=== PATIENT | female | born 1985 | race Caucasian/White ===

== ENCOUNTER 2021-08-14 10:46 | Emergency (ER) | payer BC, OTHER ==
[2021-08-14] MEDS ORDERED: ONDANSETRON ODT 4 MG TABLET TL STA (11:03)
[2021-08-14 11:24] LABS: BASOPHILS % (AUTO) 0.6 %; EOSINOPHILS # (AUTO) 0.1 10^3/uL (0.0-0.7); EOSINOPHILS % (AUTO) 1.4 %; HCT - HEMATOCRIT 41.6 % (37.0-47.0); LYMPHOCYTES # (AUTO) 1.8 10^3/uL (1.5-3.5); LYMPHOCYTES % (AUTO) 27.5 %; MEAN CORPUSCULAR HEMOGLOBIN 30.8 pg (27.0-31.0); MEAN CORPUSCULAR HGB CONC 33.7 g/dL (32.0-36.0); MEAN CORPUSCULAR VOLUME 91.4 fL (81.0-99.0); MEAN PLATELET VOLUME 11.8 fL (7.9-10.8); MONOCYTES # (AUTO) 0.5 10^3/uL (0.0-1.0); MONOCYTES % (AUTO) 6.8 %; NEUTROPHILS # (AUTO) 4.2 10^3/uL (1.5-6.6); NEUTROPHILS % (AUTO) 63.4 %; PLT - PLATELET COUNT 277 10^3/uL (130-450); RED BLOOD COUNT 4.55 10^6/uL (4.20-5.40); RED CELL DISTRIBUTION WIDTH 11.7 % (12.0-15.0); WHITE BLOOD COUNT 6.6 x10^3/uL (4.8-10.8)
[2021-08-14 11:43] LABS: ALBUMIN 4.9 g/dL (3.2-5.5); ALBUMIN/GLOBULIN RATIO 1.8 (1.0-2.2); BILIRUBIN,TOTAL 0.5 mg/dL (0.2-1.0); CALCIUM 9.8 mg/dL (8.5-10.3); CREATININE 0.7 mg/dL (0.4-1.0); POTASSIUM 3.4 mmol/L (3.5-5.0); TOTAL PROTEIN 7.6 g/dL (6.7-8.2)
[2021-08-14] MEDS ORDERED: KETOROLAC 30 MG/ML VIAL IVP STA (12:03)
[2021-08-14] MEDS ORDERED: ONDANSETRON 4 MG/2 ML VIAL IVP STA (12:03)
[2021-08-14] MEDS ORDERED: LIDOCAINE-MPF 2% 4.5 ML in SODIUM CHLORIDE 0.9% 50 ML IV STA (12:09)
--- NOTE | 2021-08-14 12:25 | ED Physician Documentation ---
PD HPI ABD PAIN - Stated complaint Stated Complaint: LT LOWER ABD PX - Chief complaint Chief Complaint: Abd Pain - History obtained from History obtained from: Patient - History of Present Illness Timing - onset: Today Timing - duration: Days (1) Timing - details: Abrupt onset Pain level max: 9 Pain level now: 9 Quality: Aching, Pain Location: LLQ Radiation: Left flank Improved by: Other (nothing) Worsened by: Other (nothing) Associated symptoms: No: Fever, Nausea, Vomiting, Hematemesis, Diarrhea, Constipation, Melena, Hematochezia, Dysuria, Hematuria, Chest pain Recently seen: Not recently seen - Additional information Additional information: Patient presents with left lower quadrant abdominal pain. Has had a history of a left-sided ureteral stone in the past and this does feel somewhat similar. Review of Systems Ten Systems: 10 systems reviewed and negative Constitutional: denies: Fever, Chills Nose: denies: Rhinorrhea / runny nose, Congestion Throat: denies: Sore throat Cardiac: denies: Chest pain / pressure GI: denies: Vomiting, Constipation, Diarrhea, Hematemesis, Bloody / black stool : reports: Dysuria. denies: Frequency, Hesitancy, Now EGA PD PAST MEDICAL HISTORY - Past Medical History Past Medical History: Yes : Kidney stones - Past Surgical History Past Surgical History: Yes - Present Medications Home Medications: Ambulatory Orders Medication Instructions Recorded Confirmed Acetaminophen/Cod 300/30 [Tylenol 1 each PO Q4-6H PRN #15 tablet 05/08/15 #3] Nitrofurantoin Monohyd/M-Cryst 100 mg PO BID 5 Days capsule 05/08/15 [Macrobid 100 mg Capsule] Pantoprazole [Protonix] 40 mg PO DAILY #30 tablet 05/08/15 Ibuprofen [Motrin] 800 mg PO Q8H PRN #30 tablet 08/14/21 Ondansetron Odt [Zofran] 4 mg TL Q6H PRN #10 tablet 08/14/21 Oxycodone HCl/Acetaminophen 1 - 2 each PO Q6H PRN #14 tablet 08/14/21 [Percocet 5-325 mg Tablet] - Allergies Allergies/Adverse Reactions: Allergies Allergy/AdvReac Type Severity Reaction Status Date / Time No Known Drug Allergies Allergy Verified 08/14/21 11:03 - Social History Does the pt smoke?: No Smoking Status: Never smoker Does the pt drink ETOH?: No Does the pt have substance abuse?: No PD ED PE NORMAL - Vitals Vital signs reviewed: Yes - General General: Alert and oriented X 3, Well developed/nourished, Other (Pacing in the room, appears uncomfortable) - HEENT HEENT: PERRL, Moist mucous membranes - Neck Neck: Supple, no meningeal sign - Cardiac Cardiac: RRR, Strong equal pulses - Respiratory Respiratory: No respiratory distress, Clear bilaterally - Abdomen Abdomen: Soft, Non tender, Non distended - Back Back: No CVA TTP, No spinal TTP - Derm Derm: Warm and dry - Extremities Extremities: No edema - Neuro Neuro: Alert and oriented X 3 - Psych Psych: Normal mood, Normal affect Results - Vitals Vitals: Vital Signs - 24 hr 08/14/21 08/14/21 08/14/21 11:00 13:18 14:47 Temperature 36.8 C 36.5 C Heart Rate 65 72 61 Respiratory 24 18 14 Rate Blood Pressure 109/69 110/59 L 127/80 O2 Saturation 100 97 100 Oxygen O2 Source Room air - Labs Labs: Laboratory Tests 08/14/21 08/14/21 08/14/21 11:17 11:17 12:35 WBC 6.6 RBC 4.55 Hgb 14.0 Hct 41.6 MCV 91.4 MCH 30.8 MCHC 33.7 RDW 11.7 L Plt Count 277 MPV 11.8 H Neut # (Auto) 4.2 Lymph # (Auto) 1.8 Waller # (Auto) 0.5 Eos # (Auto) 0.1 Baso # (Auto) 0.0 Absolute Nucleated RBC 0.00 Nucleated RBC % 0.0 Sodium 137 Potassium 3.4 L Chloride 98 L Carbon Dioxide 27 Anion Gap 12.0 BUN 15 Creatinine 0.7 Estimated GFR (MDRD) 94 Glucose 152 H Calcium 9.8 Total Bilirubin 0.5 AST 18 ALT 15 Alkaline Phosphatase 55 Total Protein 7.6 Albumin 4.9 Globulin 2.7 Albumin/Globulin Ratio 1.8 Lipase 41 Urine Color YELLOW Urine Clarity SL. CLOUDY Urine pH 6.0 Ur Specific [place] >=1.030 H Urine Protein TRACE Urine Glucose (UA) NEGATIVE Urine Ketones NEGATIVE Urine Occult Blood NEGATIVE Urine Nitrite NEGATIVE Urine Bilirubin NEGATIVE Urine Urobilinogen 0.2 (NORMAL) Ur Leukocyte Esterase NEGATIVE Urine RBC 0-5 Urine WBC 0-3 Ur Squamous Epith Cells MOD Squamous H Urine Bacteria Few Ur Microscopic Review INDICATED Urine Culture Comments NOT INDICATED Urine HCG, Qual NEGATIVE - Rads (name of study) CT abdomen and pelvis Radiology: Final report received, EMP read contemporaneously, See rad report PD MEDICAL DECISION MAKING - ED course Complexity details: reviewed results, re-evaluated patient, considered differential, d/w patient ED course: 36-year-old female with a 8.5 mm distal left ureteral stone. Pain well controlled. Tolerating p.o. without difficulty. No UTI. No fever. No evidence of sepsis. Will place on pain medication for home and have her follow- up with urology. I am prescribing a short course of short-acting opioid pain medication for this patient. I have reviewed the patients [employer] and no concerning findings were noted. I have discussed that the opioids are for short term therapy only, and will not be refilled from the ED. patient counseled regarding signs and symptoms for which I believe and urgent re-evaluation would be necessary. Patient with good understanding of and agreement to plan and is comfortable going home at this time This document was made in part using voice recognition software. While efforts are made to proofread this document, sound alike and grammatical errors may occur. Departure - Departure Disposition: 01 Home, Self Care Clinical Impression: Ureteral calculus, left Condition: Good Instructions: ED Stone Renal W Colic Follow-Up: Provider,Other [Primary Care Provider] - Brent Khanna MD [Physician No Access] - Lizbeth Matias MD [Physician No Access] - Prescriptions: Ibuprofen [Motrin] 800 mg PO Q8H PRN #30 tablet PRN Reason: PAIN &/OR FEVER Oxycodone HCl/Acetaminophen [Percocet 5-325 mg Tablet] 1 - 2 each PO Q6H PRN #14 tablet PRN Reason: pain Ondansetron Odt [Zofran] 4 mg TL Q6H PRN #10 tablet PRN Reason: Nausea / Vomiting Comments: Your prescriptions were sent to the [facility] pharmacy. It is important you follow-up closely with a urologist for further care. I would call their offices today to see when they can see you. Please tell them that you have a 8.5 mm left-sided distal ureteral stone. Take the copy of your CT scan with you. There is a chance that the stone will pass, but it may need to be removed. Return for pain that is worsening, fevers or worsening symptoms. IMPRESSION: 1.Mild left hydronephrosis with delayed nephrogram and 8.5 mm calculus in the distal ureter. I am prescribing a short course of narcotic pain medication for you. These are potentially dangerous and addictive medications that should be used carefully. These medications may constipate you. Take an [id number] stool softener (docusate) twice daily with plenty of water while taking these medications. If you go 24 hours without a bowel movement, take [id number] miralax, per package instructions. Do not drink or drive while taking these medications. If you received narcotic or sedating medications while in the emergency department, do not drive for 24 hours. Store this medication in a safe, secure place and out of reach of children. It is a violation of federal law to give or sell this medication to another person or to use in a manner other than prescribed. The ED will not refill narcotic prescriptions, including prescriptions lost or stolen. To dispose of unwanted medications: 1. [facility] at [address] in [place] has a medication drop box. They accept prescription medications (in pill form) Thursday through Thursday 9:00 a.m. to 5:00 p.m. 2. [facility] accepts prescription medications (in pill form only) for disposal year round. Call for more information. 3. Contact the [facility] for the next [facility] sponsored prescription drug collection event. , [phone], or [phone]; Discharge Date/Time: 08/14/21 15:04
[2021-08-14] MEDS ORDERED: IOVERSOL 320 100 ML VIAL IVP ONE ×2 (12:51→15:33)
[2021-08-14 12:56] LABS: BILIRUBIN,URINE NEGATIVE (NEGATIVE); GLUCOSE, URINE (UA) NEGATIVE (NEGATIVE); KETONES,URINE (UA) NEGATIVE (NEGATIVE); LEUKOCYTE ESTERASE, URINE NEGATIVE (NEGATIVE); NITRITE,URINE NEGATIVE (NEGATIVE); OCCULT BLOOD,URINE NEGATIVE (NEGATIVE); PROTEIN,URINE TRACE mg/dL (NEGATIVE); UROBILINOGEN,URINE 0.2 (NORMAL) E.U./dL (NORMAL)
[2021-08-14 13:13] LABS: CLARITY,URINE SL. CLOUDY (CLEAR)
[2021-08-14 13:14] LABS: HCG UR QUAL NEGATIVE
[2021-08-14 13:17] LABS: BACTERIA,URINE Few /HPF (None Seen); RBC,URINE 0-5 /HPF (0-5); SQUAMOUS EPITHELIAL CELL,UR MOD Squamous (<= Few); WBC,URINE 0-3 /HPF (0-5)
[2021-08-14] MEDS ORDERED: PROMETHAZINE INJ 25 MG in SODIUM CHLORIDE 0.9% 50 ML IV STA (13:25)
[2021-08-14] MEDS ORDERED: HYDROmorphone 1 MG/ML CARPUJECT IVP STA (14:05)
--- NOTE | 2021-08-14 14:11 | CT Report ---
PROCEDURE: Abdomen/Pelvis W INDICATIONS: LLQ abd pain CONTRAST: IV CONTRAST: Optiray 320 ml: 100 PO CONTRAST: *NO PO CONTRAST TECHNIQUE: After the administration of intravenous contrast, 5 mm thick sections acquired from the diaphragms to the symphysis. 5 mm thick coronal and sagittal reformats were acquired. For radiation dose reducti on, the following was used: automated exposure control, adjustment of mA and/or kV according to young ent size. COMPARISON: May 08, 2015. FINDINGS: Inferior chest: No focal consolidation, pleural effusion, or pneumothorax. No cardiomegaly or perica rdial effusion. Gallbladder: The gallbladder is distended with a smooth thin wall. Biliary tree: No intra-or extrahepatic biliary ductal dilatation. Liver: The liver demonstrates normal enhancement, size, and contour. Spleen: Normal enhancement, size and morphology is seen. Pancreas: No contour deforming mass or inflammatory change. Adrenals: Normal size without masses. Kidneys/ureters: Normal enhancement of the right kidney without evidence of obstructive uropathy. Del ayed nephrogram of the left kidney with mild hydronephrosis/hydroureter. A 8.5 mm calculus is seen in the distal ureter. Vasculature: No evidence of aneurysm or other significant vascular pathology. Lymphatic system: No pathologic enlargement by size criteria. GI/mesentery: No evidence of intestinal obstruction. Normal appearance of the appendix. Peritoneum/Retroperitoneum: No free intraperitoneal gas or large collection. Urinary bladder: The urinary bladder is distended with a smooth thin wall. Pelvic organs: No significant abnormality. Bones/soft tissues: No significant abnormality. IMPRESSION: 1.Mild left hydronephrosis with delayed nephrogram and 8.5 mm calculus in the distal ureter. Reviewed by: Eren Herbert MD on 08/14/2021 2:10 PM PST Approved by: Eren Herbert MD on 08/14/2021 2:10 PM PST Station ID: [id number]
[2021-08-14 14:55] VITALS: BP 127/80
== END 2021-08-14 15:04 | disposition home or self-care (01) ==
LOC: ED 10:46
DX: N13.2 Hydronephrosis with renal and ureteral calculous obstruction (principal)
CPT/HCPCS: 36415; 74177; 80053; 81001; 81025; 83690; 85025; 96365; 96367; 96375; 96376; 99284; 99285; J1170; J7040; Q0162; Q9967; 81003; 87086

== ENCOUNTER 2023-11-28 17:19 | Emergency (ER) | payer OTHER ==
--- NOTE | 2023-11-28 17:33 | ED Physician Documentation ---
PD HPI SKIN - Stated complaint Stated Complaint: RT ARM SWELLING/ITCH - Chief complaint Chief Complaint: Trauma Ext - History obtained from History obtained from: Patient - History of Present Illness Timing - onset: How many days ago (2) Timing - duration: Days (2) Timing - details: Gradual onset, Still present (bitten by spider in dorsal hand (felt and saw the spider in her coat sleeve after putting it on and felt it bite on hand as she brushed it away) 2 days ago with swelling and some redness at the site. Today is having increased swelling and redness in hand and extending to forearm, with red streaks.) Location: RUE Quality / character: Itchy, Burning, Discolored (red), Swelling Improved by: Other (cool towels and also topical cream.). No: Benadryl Associated symptoms: No: Fever, Myalgias, Facial swelling, Dyspnea, N/V/D Contributing factors: Insect bite /sting (presumes brown recluse or hobo spider, but she smooshed it so not able to identify exactly.) Review of Systems Throat: denies: Oral lesions / sores, Sore throat Respiratory: denies: Dyspnea, Wheezing GI: denies: Nausea, Vomiting Neurologic: denies: Focal weakness, Numbness PD PAST MEDICAL HISTORY - Past Medical History Cardiovascular: None Respiratory: None Endocrine/Autoimmune: None GI: Ulcers : Kidney stones - Past Surgical History Past Surgical History: Yes - Present Medications Home Medications: Ambulatory Orders Medication Instructions Recorded Confirmed Acetaminophen/Cod 300/30 [Tylenol 1 each PO Q4-6H PRN #15 tablet 05/08/15 #3] Nitrofurantoin Monohyd/M-Cryst 100 mg PO BID 5 Days capsule 05/08/15 [Macrobid 100 mg Capsule] Pantoprazole [Protonix] 40 mg PO DAILY #30 tablet 05/08/15 Ibuprofen [Motrin] 800 mg PO Q8H PRN #30 tablet 08/14/21 Ondansetron Odt [Zofran] 4 mg TL Q6H PRN #10 tablet 08/14/21 Oxycodone HCl/Acetaminophen 1 - 2 each PO Q6H PRN #14 tablet 08/14/21 [Percocet 5-325 mg Tablet] cephALEXin [Keflex] 500 mg PO TID #15 cap 11/28/23 dexAMETHasone [Decadron] 4 mg PO DAILY #5 tablet 11/28/23 - Allergies Allergies/Adverse Reactions: Allergies Allergy/AdvReac Type Severity Reaction Status Date / Time No Known Drug Allergies Allergy Verified 11/28/23 17:33 - Social History Does the pt smoke?: No Smoking Status: Never smoker Does the pt drink ETOH?: No Does the pt have substance abuse?: No PD ED PE NORMAL - Vitals Vital signs reviewed: Yes - General General: Alert and oriented X 3, No acute distress, Well developed/nourished - Derm Derm: Normal color, Warm and dry - Extremities Extremities: Other (dorsum right hand with several small blisters without purulence near index MCP. whole of hand with swelling, tender, some redness and warmth. Palm side minimal. Extends to forearm with red/warmth, adn there is lymphangitic streaking lateral upper arm. No axillary nodes. ) - Neuro Neuro: No motor deficit, No sensory deficit Results - Vitals Vitals: Vital Signs - 24 hr 11/28/23 17:26 Temperature 36.6 C Heart Rate 85 Respiratory 18 Rate Blood Pressure 107/88 H O2 Saturation 100 Oxygen O2 Source Room air PD Medical Decision Making - ED course Complexity details: considered differential (Pt witnessed spider on arm and felt bite. So certianly local venom effect. Consider local allergic response with itching. However now developing assymetric extension of red/warm and red streaks so concerning for infection now. ), d/w patient Departure - Departure Disposition: 01 Home, Self Care Clinical Impression: Toxic effect of spider venom, assault, Cellulitis Condition: Stable Record reviewed to determine appropriate education?: Yes Instructions: ED Bite Insect Brown Recluse Spider, ED Infec Skin Cellulitis Follow-Up: ANGEL ALMANZAR ND [Primary Care Provider] - Prescriptions: dexAMETHasone [Decadron] 4 mg PO DAILY #5 tablet cephALEXin [Keflex] 500 mg PO TID #15 cap Comments: The swelling, itching, blistering on the back of the hand certainly would be consistent with the toxin effect from a spider bite. It may be of the brown recluse type although her more local 1 is called a hobo spider with a similar toxin but usually not quite as necrotic. Certainly your seeming to have a local allergy type reaction to it as well and that may be what accounts for some of the extension of the arm. However the warmth and redness extending up the arm along with the red streaks in the upper arm would be more concerning for an infection brewing. Cool towels to the area to help reduce some of the swelling. You could use a sling periodically to help elevate the arm and reduce swelling. Range of motion periodically is good. Continue with some antihistamine such as cetirizine/Zyrtec or Benadryl every 6 hours or so as needed for itching. Topical medication such as lidocaine patches or benzocaine/Solarcaine type medicine can be helpful as well. Arnica could be used as an anti-inflammatory and can help the itching as well. Regarding the allergic reaction portion, I would suggest steroid anti-in flammatory dexamethasone daily for 3 to 5 days until this is pretty well improved. With regard to likely infection as well (cellulitis) I would also use cephalexin 3 times daily for the next 5 days. Use some probiotics to help with any intestinal effect of the antibiotics. Recheck if not improving well over the next few days and return if worse. I sent your prescriptions to [facility] in [place]. Forms: PCP List Discharge Date/Time: 11/28/23 18:07
[2023-11-28 17:36] VITALS: BP 107/88; O2SAT 100
[2023-11-28] MEDS: dexAMETHasone 4 MG TABLET PO STA (18:01)
[2023-11-28] MEDS: CETIRIZINE 10 MG TABLET PO STA (18:02)
[2023-11-28] MEDS: cephALEXin 250 MG CAPSULE PO STA (18:02)
[2023-11-28] MEDS: LIDOCAINE PATCH 5% TOP STA (18:02)
== END 2023-11-28 18:07 | disposition home or self-care (01) ==
LOC: ED 17:19
DX: T63.301A Toxic effect of unspecified spider venom, accidental (unintentional), initial encounter (principal); L03.113 Cellulitis of right upper limb; Z79.899 Other long term (current) drug therapy
CPT/HCPCS: 99283; A9270; J8540